=== PATIENT | male | born 1980 | race Caucasian/White ===

== ENCOUNTER 2020-05-06 09:13 | Emergency (ER) | payer SELFPAY ==
[2020-05-06 09:23] VITALS: PULSE 88; BMI 37.6
[2020-05-06] MEDS ORDERED: DEXAMETHASONE SOD PHOSPHATE 10 MG/1 ML VIAL IM ONE (09:58)
--- NOTE | 2020-05-06 09:58 | PDOC ---
History of Present Illness - General Chief Complaint: Edema Stated Complaint: SWOLLEN TONSIL Time Seen by Provider: 05/06/20 09:27 - History of Present Illness Initial Comments: 39 yom no history w/ tonsilar swelling since this AM. Patient reports woke up this AM with swelling in back of throat, pain and difficulty with swallowing, difficulty breathing. Had episode of this in past, 20 years prior, resolved with steroids and abx. Denies fever, chills, n/v/d, chest pain, or shortness of breath. Constitutional: No Weight Change, No Fever, No Chills, No Night Sweats, No Fatigue, No Malaise ENT/Mouth: No Hearing Changes, No Ear Pain, No Nasal Congestion, No Sinus Pain, No Hoarseness, No sore throat, No Rhinorrhea, + Swallowing Difficulty Eyes: No Eye Pain, No Swelling, + Redness, No Foreign Body, No Discharge, No Vision Changes Cardiovascular: No Chest Pain, No SOB, No PND, No Dyspnea on Exertion, No Orthopnea, No Claudication, No Edema, No Palpitations Respiratory: No Cough, No Sputum, No Wheezing, No Smoke Exposure, No Dyspnea Gastrointestinal: No Nausea, No Vomiting, No Diarrhea, No Constipation, No Pain, No Heartburn, No Anorexia, No Dysphagia, No Hematochezia, No Melena, No Flatulence, No Jaundice Genitourinary: No Dysmenorrhea, No DUB, No Dyspareunia, No Dysuria, No Urinary Frequency, No Hematuria, No Urinary Incontinence, No Urgency, No Flank Pain, No Urinary Flow Changes, No Hesitancy Musculoskeletal: No Arthralgias, No Myalgias, No Joint Swelling, No Joint Stiffness, No Back Pain, No Neck Pain, No Injury History Skin: No Skin Lesions, No Pruritis, No Hair Changes, No Breast/Skin Changes, No Nipple Discharge Neuro: No Weakness, No Numbness, No Paresthesias, No Loss of Consciousness, No Syncope, No Dizziness, No Headache, No Coordination Changes, No Recent Falls Psych: No Anxiety/Panic, No Depression, No Insomnia, No Personality Changes, No Delusions, No Rumination, No SI/HI/AH/VH, No Social Issues, No Memory Changes, No Violence/Abuse Hx., No Eating Concerns Heme/Lymph: No Bruising, No Bleeding, No Transfusions History, No Lymphadenopathy Past History - Medical History Allergies/Adverse Reactions: Allergies Allergy/AdvReac Type Severity Reaction Status Date / Time No Known Allergies Allergy Verified 05/06/20 09:17 Home Medications: Ambulatory Orders predniSONE [Deltasone -] 40 mg PO DAILY 4 Days #4 tablet 05/06/20 COPD: No - Psycho-Social/Smoking History Smoking History: Never smoked Have you smoked in the past 12 months: No - Substance Abuse Hx (Audit-C & DAST Scrn) How often the patient has a drink containing alcohol: Monthly or less Number of drinks the patient has on a typical day: 1 or 2 How often the patient has six or more drinks on one occasion: Never Score: In Men: 4 or > Positive; In Women: 3 or > Positive: 1 Screen Result (Pos requires Nsg. Audit-10AR): Negative In the last yr the pt used illegal drug/Rx for NonMed reason: No Score: Yes response is considered Positive: 0 Screen Result (Positive result requires Nsg. DAST-10): Negative *Physical Exam - Vital Signs Last Vital Signs Temp Pulse Resp BP Pulse Ox 97.9 F 88 18 122/86 100 05/06/20 09:17 05/06/20 09:17 05/06/20 09:17 05/06/20 09:17 05/06/20 09:17 - Physical Exam General Appearance: Yes: Nourished, Appropriately Dressed, Moderate Distress HEENT: positive: EOMI, LORENZO, Muffled/Hoarse voice, Other (patient has marked swelling of uvula, occludes visualization of the posterior pharynx) Neck: positive: Trachea midline, Supple Respiratory/Chest: positive: Lungs Clear, Normal Breath Sounds Cardiovascular: positive: Regular Rhythm, Regular Rate, S1, S2 Gastrointestinal/Abdominal: positive: Flat, Soft Musculoskeletal: positive: Normal Inspection Extremity: positive: Normal Capillary Refill, Normal Inspection Integumentary: positive: Normal Color, Dry, Warm 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 NML intact, Fully Oriented, Alert, Normal Mood/Affect, Normal Response, Motor Strength 5/5 Medical Decision Making - Medical Decision Making 39 YOM no history with acute swelling of uvula - vitals wnl - exam reveals markedly swollen uvula which obstructs view of posterior pharynx - will give 10mg decadron and reassess reassess - swelling shows minor improvement - patient feels well - able to breath without difficulty - will dc with rx for prednisone and ENT follow up Discharge - Discharge Information Problems reviewed: Yes Clinical Impression/Diagnosis: Uvulitis Condition: Good - Admission No - Additional Discharge Information Prescriptions: predniSONE [Deltasone -] 40 mg PO DAILY 4 Days #4 tablet - Follow up/Referral Referrals: [facility] [place] [facility] [place] [facility] [place] [Provider Group] Stone Higgins MD [Staff Physician] - - Patient Discharge Instructions Patient Printed Discharge Instructions: DI for Uvulitis Additional Instructions: You were seen in the ER for swelling of your uvula. You received a rapid strep test and medications to reduce your swelling. Your rapid strep test was negative and the swelling appeared to have decreased since taking the medications. You were considered medically stable and safe to return home. Please take the medication, prednisone, as prescribed. Please follow up with primary care and ENT within 3 days after discharge. Follow up with your healthcare provider as directed: Write down your questions so you remember to ask them during your visits. Contact your healthcare provider if: Your signs and symptoms do not get better, even after treatment. You have questions or concerns about your condition or treatment. Return to the emergency department if: You have worse trouble swallowing. You have trouble breathing Feel short of breath Appear pale or bluish in color Are unable to drink fluids If your swelling increases - Post Discharge Activity
[2020-05-06] MEDS ORDERED: DEXAMETHASONE SOD PHOSPHATE 10 MG/1 ML VIAL ONE (10:01)
--- NOTE | 2020-05-06 10:31 | PDOC ---
Documentation entered by Devon Virgen SCRIBE, acting as scribe for Som James MD. Som James MD: This documentation has been prepared by the Promise g[employer] Angel, SCRIBE, under my direction and personally reviewed by me in its entirety. I confirm that the documentation accurately reflects all work, treatment, procedures, and medical decision making performed by me. Attending Attestation - Resident Resident Name: Bruce Sanabria - ED Attending Attestation I have performed the following: I have examined & evaluated the patient, The case was reviewed & discussed with the resident, I agree w/resident's findings & plan, Exceptions are as noted - HPI HPI: 05/06/20 10:22 The patient is a 39 year old male with no significant past medical history who presents to the ED with throat swelling since this morning. The patient states he was out drinking last night and felt fine, then woke up this morning with swelling in the back of his throat. The patient reports pain in the back of his throat when he swallows, but he denies any difficulty breathing and difficulty swallowing. The patient notes a prior episode 20 years ago, which was resolved with steroids and antibiotics. The patient denies SOB, fever/chills, cough or chest pain. Denies any recent illnesses, body aches. - Physicial Exam PE: 05/06/20 10:30 GENERAL: The patient is awake, alert, and fully oriented, Nontoxic - in no acute distress. HEAD: Normocephalic, atraumatic. EYES: extraocular movements intact, sclera anicteric, conjunctiva clear. ENT: Slightly muffled voice, Moist mucous membranes, swollen uvula, otherwise patent airway, no asymmetry of the posterior pharynx, no stridor NECK: Normal range of motion, supple LUNGS: Breath sounds equal, clear to auscultation bilaterally. No wheezes, no rhonchi, no rales. HEART: Regular rate and rhythm, normal S1 and S2 without murmur, rub or gallop. ABDOMEN: Soft, nontender, No guarding, no rebound. No CVA tenderness EXTREMITIES: Normal range of motion, no edema. NEUROLOGICAL: No facial assymetry, Normal speech, PSYCH: Normal mood, normal affect. SKIN: Warm, Dry, normal turgor, - Medical Decision Making 05/06/20 10:31 Likely uvulitis, will treat with steroids Will observe for improvement No fevers or other signs of infection 05/06/20 13:05 Pt feeling improved no worsening of symptmos will dc with outpatint ENT fu return precautiosn were dsicsused including any difficult swallowing or with breathing. Discharge - Discharge Information Problems reviewed: Yes Clinical Impression/Diagnosis: Uvulitis Condition: Improved Disposition: HOME - Admission No - Additional Discharge Information Prescriptions: predniSONE [Deltasone -] 40 mg PO DAILY 4 Days #4 tablet - Follow up/Referral Referrals: [facility] [place] [Provider Group] Stone Higgins MD [Staff Physician] - - Patient Discharge Instructions Patient Printed Discharge Instructions: DI for Uvulitis Additional Instructions: You were seen in the ER for swelling of your uvula. You received a rapid strep test and medications to reduce your swelling. Your rapid strep test was negative and the swelling appeared to have decreased since taking the medications. You were considered medically stable and safe to return home. Please take the medication, prednisone, as prescribed. Please follow up with primary care and ENT within 3 days after discharge. Follow up with your healthcare provider as directed: Write down your questions so you remember to ask them during your visits. Contact your healthcare provider if: Your signs and symptoms do not get better, even after treatment. You have questions or concerns about your condition or treatment. Return to the emergency department if: You have worse trouble swallowing. You have trouble breathing Feel short of breath Appear pale or bluish in color Are unable to drink fluids If your swelling increases - Post Discharge Activity
[2020-05-06 12:24] VITALS: BP 123/80; TEMP 98.2
== END 2020-05-06 12:24 | disposition home or self-care (01) ==
LOC: JER 09:13
PROC: 3E033NZ Introduction of Analgesics, Hypnotics, Sedatives into Peripheral Vein, Percutaneous Approach (ICD-10-PCS; principal; 2020-05-06)
DX: K12.2 Cellulitis and abscess of mouth (principal)
CPT/HCPCS: 87070; 87880; 99284-25; J1100

== ENCOUNTER 2021-02-08 09:30 | Emergency (ER) | payer OTHER ==
[2021-02-08 09:52] VITALS: TEMP 98.4; BMI 36.9
[2021-02-08] MEDS ORDERED: SODIUM CHLORIDE 0.9% 1000 ML INFUS.BAG IV ONE (10:11)
[2021-02-08 10:14] LABS: BASO % 1.1 % (0-2.0); EOS % 2.1 % (0-4.5); HEMATOCRIT 44.3 % (35.4-49); HEMOGLOBIN 15.1 GM/dl (11.7-16.9); LYMPH % 17.5 % (8-40); MCH 29.5 pg (25.7-33.7); MEAN CELL VOLUME 86.7 fl (80-96); MONO % 6.2 % (3.8-10.2); NEUT % 73.1 % (42.8-82.8); PLATELET COUNT 214 10^3/uL (134-434); RBC 5.11 M/mm3 (4.00-5.60); RDW 12.6 % (11.9-15.9); WHITE BLOOD COUNT 6.6 K/mm3 (4.0-10.8)
[2021-02-08 10:34] LABS: ALK PHOS 75 U/L (45-117); ANION GAP 9 MMOL/L (8-16); BILIRUBIN,TOTAL 0.7 mg/dl (0.2-1); CALCIUM 8.4 mg/dl (8.5-10); CHLORIDE 104 mmol/L (98-107); CO2 21 mmol/L (21-32); CREATININE 1.1 mg/dl (0.55-1.3); GLUCOSE,RANDOM 115 mg/dl (74-106); SGOT/AST 44 U/L (15-37); SGPT/ALT 76 U/L (13-61); SODIUM 134 mmol/L (136-145); TOT PROT 7.1 g/dl (6.4-8.2)
[2021-02-08 13:30] VITALS: BP 128/78; PULSE 72
== END 2021-02-08 14:55 | disposition home or self-care (01) ==
LOC: FER 09:30
DX: R07.9 Chest pain, unspecified (principal); R55 Syncope and collapse; F14.10 Cocaine abuse, uncomplicated
CPT/HCPCS: 36415; 71045-TC-FY; 80053; 82550; 82553; 84484; 85025; 93005; 99285-25; C9803; U0003; U0005

== ENCOUNTER 2021-02-17 08:11 | Emergency (ER) | payer OTHER ==
[2021-02-17 08:23] VITALS: BP 136/91; PULSE 72; TEMP 97.1; BMI 36.9
[2021-02-17] MEDS ORDERED: ACETAMINOPHEN 325 MG TABLET (FP) PO ONE (09:25)
[2021-02-17] MEDS ORDERED: ACETAMINOPHEN 325 MG TABLET (FP) ONE (09:36)
[2021-02-17 10:04] LABS: BASO % 0.6 % (0-2.0); HEMATOCRIT 46.1 % (35.4-49); HEMOGLOBIN 15.7 GM/dL (11.7-16.9); LYMPH % 14.9 % (8-40); MCHC 34.1 g/dl (32.0-35.9); MEAN CELL VOLUME 85.1 fl (80-96); MEAN PLT VOLUME 8.6 fl (7.5-11.1); MONO % 5.3 % (3.8-10.2); NEUT % 77.2 % (42.8-82.8); PLATELET COUNT 240 10^3/uL (134-434); RBC 5.42 M/mm3 (4.00-5.60); RDW 13.4 % (11.9-15.9)
[2021-02-17 10:24] LABS: CHLORIDE 105 mmol/L (98-107); SODIUM 137 mmol/L (136-145)
[2021-02-17 10:26] LABS: CALCIUM 8.7 mg/dL (8.5-10.1)
[2021-02-17 10:27] LABS: ALBUMIN 3.9 g/dl (3.4-5.0); ANION GAP 9 MMOL/L (8-16); BLOOD UREA NITROGEN 17.9 mg/dL (7-18); CO2 24 mmol/L (21-32); GLUCOSE,RANDOM 115 mg/dL (74-106)
[2021-02-17 10:30] LABS: CREATININE 1.1 mg/dL (0.55-1.3); SGOT/AST 52 U/L (15-37); SGPT/ALT 103 U/L (13-61)
[2021-02-17 10:31] LABS: BILIRUBIN,TOTAL 0.6 mg/dL (0.2-1); TOT PROT 7.4 g/dl (6.4-8.2)
[2021-02-17 10:33] LABS: ALK PHOS 92 U/L (45-117)
[2021-02-17 11:10] LABS: INR 0.92 (0.83-1.09); PROTHROMBIN TIME (PATIENT) 11.4 SEC (9.7-13.0)
== END 2021-02-17 11:55 | disposition home or self-care (01) ==
LOC: JER 08:11
DX: R42 Dizziness and giddiness (principal)
CPT/HCPCS: 36415; 80053; 82550; 82553; 84484; 85025; 85610; 93005; 93010; 99284-25

== ENCOUNTER 2021-02-17 13:48 | Emergency (ER) | payer OTHER ==
[2021-02-17 14:20] VITALS: TEMP 98; BMI 36.9
[2021-02-17] MEDS ORDERED: MECLIZINE HCL 25 MG TABLET (FP) PO ONE (14:39)
[2021-02-17] MEDS ORDERED: KETOROLAC TROMETHAMINE 15 MG/ML VIAL ONE (15:00)
[2021-02-17] MEDS ORDERED: LIDOCAINE 5% TOPICAL PATCH ONE (15:00)
[2021-02-17] MEDS ORDERED: CYCLOBENZAPRINE HCL 10 MG TABLET (FP) ONE (15:00)
[2021-02-17] MEDS ORDERED: MECLIZINE HCL 25 MG TABLET (FP) ONE (15:10)
[2021-02-17 17:02] VITALS: BP 145/95; PULSE 63
== END 2021-02-17 16:30 | disposition home or self-care (01) ==
LOC: JER 13:48
DX: R42 Dizziness and giddiness (principal)
CPT/HCPCS: 82962; 93005; 93010; 99284-25

== ENCOUNTER 2021-03-27 21:03 | Emergency (ER) | payer OTHER ==
[2021-03-27 22:00] VITALS: BP 114/73; PULSE 77; TEMP 98.2; BMI 37.3
== END 2021-03-27 22:30 | disposition left against medical advice (07) ==
LOC: JER 21:03
DX: R00.2 Palpitations (principal)
CPT/HCPCS: 93005; 93010; 99283-25

== ENCOUNTER 2022-01-16 22:46 | Emergency (ER) | payer OTHER ==
[2022-01-16 22:54] VITALS: BP 113/77; TEMP 98.1; BMI 38.4
[2022-01-17 00:43] LABS: BASO % 0.7 % (0-2.0); EOS % 1.2 % (0-4.5); HEMATOCRIT 45.5 % (35.4-49); HEMOGLOBIN 15.2 GM/dL (11.7-16.9); LYMPH % 20.7 % (8-40); MCH 27.6 pg (25.7-33.7); MCHC 33.4 g/dl (32.0-35.9); MEAN CELL VOLUME 82.7 fl (80-96); MEAN PLT VOLUME 8.5 fl (7.5-11.1); MONO % 6.1 % (3.8-10.2); NEUT % 71.3 % (42.8-82.8); PLATELET COUNT 257 10^3/uL (134-434); RBC 5.51 M/mm3 (4.00-5.60); RDW 13.9 % (11.9-15.9); WHITE BLOOD COUNT 9.5 K/mm3 (4.0-10.0)
[2022-01-17] MEDS ORDERED: SODIUM CHLORIDE 0.9% 500 ML INFUS.BAG IV ONE (01:04)
[2022-01-17 01:13] LABS: CALCIUM 9.6 mg/dL (8.5-10.1)
[2022-01-17 01:14] LABS: ALBUMIN 4.1 g/dl (3.4-5.0); BLOOD UREA NITROGEN 22.2 mg/dL (7-18); MAGNESIUM 2.2 mg/dL (1.8-2.4)
[2022-01-17 01:17] LABS: CREATININE 1.2 mg/dL (0.55-1.3)
[2022-01-17 01:19] LABS: BILIRUBIN,TOTAL 0.4 mg/dL (0.2-1); TOT PROT 7.9 g/dl (6.4-8.2)
[2022-01-17 03:46] VITALS: PULSE 80
== END 2022-01-17 03:46 | disposition home or self-care (01) ==
LOC: JER 22:46
DX: R00.2 Palpitations (principal)
CPT/HCPCS: 36415; 71046-TC-FY; 80053; 83735; 84484; 85025; 93005; 93010; 99285-25